=== PATIENT | female | born 1980 | race Caucasian/White ===

== ENCOUNTER 2021-09-29 17:23 | Emergency (ER) | payer MEDICAID, SELFPAY ==
[2021-09-29 17:27] VITALS: BP 108/58; PULSE 76; RESP 18; TEMP 37.2; O2SAT 97
--- NOTE | 2021-09-29 17:52 | ED.GENADUL_ITS ---
Discharge Plan Disposition Patient Disposition: ELOPED Condition: Serious Discharge Details Chief Complaint: Cellulitis Clinical Impression: Ankle swelling, Agitated Primary Care Provider: Unknown,Unknown ED Provider: Harpal Kumar Home Meds and New Rx's Prescriptions: No Action No Known Home Meds Medical Decision Making 41 yo female with hx of substance abuse on methadone who comes in with complaint of skin lesions on her arms and legs for the past month and the last day or so started to have redness of her outter ankles and swelling so came here for an evaluation. She states the lesions appear sporadically and randomly and can't think of anything that make them appear. She has numerous 1-2cm circular skin excoriations that have the appearance of skin popping on her arms and legs but denies any use of illicit drugs or self inflicted skin popping. She has erythema of both lateral malleolus with some swelling, no tunneling lesions of the ankles, has full rom of the ankles and normal sensation. Suspect cellulitis but will obtain cbc, cmp, esr and cmp, xrays and likely try arthrocentesis to evaluate for possible septic joint. I was notified the patient became upset with a nuse when she was offered tylenol. I went to see the patient and tried to determine what had happened, as soon as I did she started screaming and yelling about the way the nurse had treated her and yelling explitives. I asked her calmly to try and calm down and not swear and she would for a few seconds but then would start screaming and yelling explitives again. She then started to yell at me and scream at me that I wasn't taking care of her. I advised I was trying to take care of her and was doing xrays and likely would proceed with arthrocentesis of her ankles due to concern for septic arthritis. She continued to yell at me and I advised I had other patients to see and if that she wanted she could stop yelling at staff and allow us to do xrays and then do an arthrocentesis. She then eloped from the department. She had clinical decision making capacity and was clinically sober to make her own decisions. I was not able to do an against medical advise form with her but had told her if septic arthritis was delayed or not treated it could lead to loss of limb, need for constant care and even and she understood this. Differential Diagnosis Differential Diagnosis: rash, septic joint, cellulitis, skin popping HPI General Mode of arrival: ambulatory . Date/Time Provider Initiated Documentation: 09/29/21 17:23 . Limitations to Documentation: no limitations . Information obtained by: patient . History of Present Illness 41 year old F presents to the emergency department with the chief complaint of lesions on arms and legs, described as moderate, Patient started experiencing this month(s) (1) and it has been constant. No relieving factors improve symptom(s), No exacerbating factors reported . Patient notes denies chest pain and fever/chills. Patient did receive the following treatments prior to arrival, none Related Data Home Medications Medication Instructions Recorded Confirmed Unknown [No Known Home Meds] 09/29/21 09/29/21 Allergies Allergy/AdvReac Type Severity Reaction Status Date / Time bee venom protein (honey bee) Allergy Anaphylaxis Unverified 09/29/21 17:30 NSAIDS (Non-Steroidal Allergy Anaphylaxis Unverified 09/29/21 17:30 Anti-Inflamma General Stated Complaint: Cellulitis MALCOLM: 4 Review of Systems All systems reviewed & are unremarkable except as noted in HPI and below Constitutional Constitutional: Denies chills, Denies fever(s) and Denies weakness Eyes Eyes: Denies loss of vision ENT Ears, Nose, Mouth, and Throat: Denies change in voice Cardiovascular Cardiovascular: Denies chest pain and Denies dyspnea Respiratory Respiratory: Denies cough and Denies dyspnea Gastrointestinal Gastrointestinal: Denies abdominal pain, Denies nausea and Denies vomiting Genitourinary Genitourinary: Denies dysuria Neurologic Neurologic: Denies loss of vision and Denies weakness PFSH All Active Problems (Updated 09/29/21 @ 18:34 by Harpal Kumar MD) Ankle swelling (Acute) Agitated (Acute) Social History Smoking/Tobacco Use Status: Current every day Tobacco Type: cigarettes Smoking risk assessment performed?: Yes Alcohol Intake: never Drug use: Daily Substance use type: marijuana Do you feel safe at home: Yes Do you feel safe in your relationship?: Yes Exam Const General: no acute distress Orientation: alert HENMT Head: normal to inspection Ears: external ears normal General nose exam: external nose normal Mouth: moist mucous membranes Eyes General: appearance normal, both eyes and all related structures Neck Neck: normal visual inspection Resp Effort & Inspection: normal respiratory effort and able to speak in complete sentences Cardio Rate: regular rate Skin General skin exam: erythema Neuro General: patient alert and patient oriented x3 Extrem General: full ROM and capillary refill normal Psych Appearance: disheveled Course Vital Signs Vital signs: Vital Signs Temperature 37.2 C 09/29/21 17:27 Pulse 76 09/29/21 17:27 Respiratory Rate 18 09/29/21 17:27 Blood Pressure 108/58 L 09/29/21 17:27 Pulse Oximetry 97 09/29/21 17:27 Temperature 37.2 C 09/29/21 17:27 Temperature Source Temporal Artery Scan 09/29/21 17:27 Pulse 76 09/29/21 17:27 Respiratory Rate 18 09/29/21 17:27 Respiratory Effort Non-Labored 09/29/21 17:30 Blood Pressure 108/58 L 09/29/21 17:27 Blood Pressure Position Sitting 09/29/21 17:27 Pulse Oximetry 97 09/29/21 17:27 Oxygen Delivery Method Room Air 09/29/21 17:27 Oxygen Flow Rate 0 09/29/21 17:27
[2021-09-29 18:01] LABS: Abs Immature Grans 0.03 10^3/uL (0.0-0.06); Absolute Basophil Count 0.06 10^3/uL (0.0-0.2); Absolute Eosinophil Count 0.23 10^3/uL (0.0-0.7); Absolute Lymphocyte Count 1.77 10^3/uL (1.2-3.4); Absolute Monocyte Count 1.22 10^3/uL (0.1-0.8); Basophils % 0.6; Eosinophils % 2.1; HCT 36.7 % (36.0-46.0); Immature Grans % 0.3; Lymphocytes % 16.4; MCH 28.6 pg (27.0-33.0); MCHC 32.7 % (32.0-36.0); MCV 87 fL (80-95); MPV 10.4 fL (8.0-11.0); Monocytes % 11.3; Neutrophils % 69.3; Platelet Count 304 10^3/uL (130-400); RDW 14.7 % (11.7-14.6); RDW-SD 47.4 fL; WBC 10.81 10^3/uL (4.4-10.8)
[2021-09-29 18:03] LABS: Absolute Neutrophil Count 7.49 10^3/uL (1.2-6.7)
[2021-09-29 18:05] LABS: ESR 61 mm/hr (0-20)
[2021-09-29 18:09] LABS: Bilirubin Small (Negative); Blood Trace-intact (Negative); Clarity Sl Cloudy (Clear); Glucose Negative (Negative); Ketones Negative (Negative); Leukocyte Esterase Negative (Negative); Nitrite Negative (Negative); Specific Gravity >= 1.030 (1.005-1.025); pH 5.5 (5-8)
[2021-09-29 18:16] LABS: Bacteria Few HPF (Negative); Crystals Rare Calcium Oxalate HPF (Negative); Epithelial Cells Moderate HPF (Negative); Mucus Heavy (Negative); RBC 0-2 HPF (0-2); WBC 0-2 HPF (0-5)
[2021-09-29 18:17] LABS: C & S Indicated? No; Casts 0-2 Hyaline LPF (Negative)
[2021-09-29 18:26] LABS: ALT 17 U/L (14-59); AST 16 U/L (15-37); Alkaline Phosphatase 100 U/L (46-116); Anion Gap 4.9 mmol/L (3-11); BUN 14 mg/dL (7-18); Bilirubin, Total 0.3 mg/dL (0.2-1.0); CO2 30.1 mmol/L (21.0-32.0); CREATININE 0.9 mg/dL (0.55-1.02); Calcium 8.9 mg/dL (8.5-10.1); Chloride 105 mmol/L (98-107); Glucose 117 mg/dL (74-106); Potassium 3.5 mmol/L (3.5-5.1); Sodium 140 mmol/L (136-145); Total Protein 7.9 g/dL (6.4-8.2)
[2021-09-29 18:34] LABS: Tricyclic Antidepressants Negative (Negative)
[2021-09-29 18:35] LABS: *AMPHETAMINES SCREEN URINE Negative (Negative); *BARBITURATES SCREEN URINE Negative (Negative); *BENZODIAZEPINES SCREEN URINE Negative (Negative); Cannabinoids THC Positive (Negative); Cocaine Screen,Urine Positive (Negative); METHADONE URINE SCREEN Positive (Negative); OPIATES URINE SCREEN Negative (Negative)
== END 2021-09-29 18:19 ==
PROVIDERS: Emergency Provider Emergency Medicine
DX: R45.1 Restlessness and agitation (principal); L53.9 Erythematous condition, unspecified; L03.90 Cellulitis, unspecified; L98.8 Other specified disorders of the skin and subcutaneous tissue; F17.210 Nicotine dependence, cigarettes, uncomplicated; Z53.29 Procedure and treatment not carried out because of patient's decision for other reasons
CPT/HCPCS: 80053; 80307; 81025; 85652; 99282; 81003; 81015; 85025; 86140

== ENCOUNTER 2022-01-12 11:17 | Emergency (ER) | payer MEDICAID, SELFPAY ==
[2022-01-12 11:27] VITALS: BP 106/68; PULSE 94; RESP 18; TEMP 36.6; O2SAT 97
--- NOTE | 2022-01-12 12:15 | DI.CT_ITS ---
Exam(s) CT HEAD CERVICAL SPINE WO EXAM: CT HEAD CERVICAL SPINE WO CLINICAL HISTORY: fall, HI, neck pain. TECHNIQUE: Imaging Protocol: Axial computed tomography images with coronal and sagittal reformatted images were created and reviewed COMPARISON: No exams were available for comparison FINDINGS: CT Head: Ventricles and Extra axial spaces: Normal in size and morphology for the patient's age. Hemorrhage: None. Cerebral parenchyma: Normal. Midline shift: None. Brainstem/Cerebellum: Normal. Calvarium: Normal. Visualized Paranasal sinuses/Mastoids: Clear. Soft Tissues: Unremarkable. CT Cervical Spine: Bones: No acute fracture or subluxation. There is mild cervical spondylosis. Soft Tissues: Unremarkable. Lung Apices: Clear. IMPRESSION: 1. No acute intracranial process. 2. No acute fracture or subluxation in the cervical spine. 3. Findings were discussed with the emergency department at 1:36 p.m. on 01/12/2022. RADIATION DOSE DELIVERED: 1,220.58mGy.cm Total DLP DATA REPOSITORY: All CT scans at this facility are submitted to the National Radiology Data Registry (NRDR) Dose Index Registry (DIR) with the [employer] (ACR). RADIATION OPTIMIZATION: All CT scans at this facility use at least one of these dose optimization te chniques: automated exposure control; mA and/or kV adjustment per patient size (includes targeted exa ms where dose is matched to clinical indication); or iterative reconstruction.
--- NOTE | 2022-01-12 12:15 | RT.EKG_ITS ---
APPROVED REPORT Exam: Resting ECG Reason for Exam: [facility] Patient Location: E HR:66 bpm ECG Measurements Heart Rate 66 AXIS HI 188 P 48 QRSd 92 QRS 74 QT 393 T 35 QTc 412 Conclusion Sinus rhythm...normal P axis, V-rate 60- 99
[2022-01-12 12:42] LABS: Abs Immature Grans 0.04 10^3/uL (0.0-0.06); Absolute Basophil Count 0.06 10^3/uL (0.0-0.2); Absolute Eosinophil Count 0.15 10^3/uL (0.0-0.7); Absolute Lymphocyte Count 2.42 10^3/uL (1.2-3.4); Absolute Monocyte Count 0.66 10^3/uL (0.1-0.8); Absolute Neutrophil Count 8.31 10^3/uL (1.2-6.7); Basophils % 0.5; Eosinophils % 1.3; HGB 15.5 g/dL (11.2-15.7); Immature Grans % 0.3; Lymphocytes % 20.8; MCH 29.2 pg (27.0-33.0); MCHC 32.3 % (32.0-36.0); MCV 91 fL (80-95); MPV 10.8 fL (8.0-11.0); Monocytes % 5.7; Neutrophils % 71.4; Platelet Count 381 10^3/uL (130-400); RDW 14.7 % (11.7-14.6); RDW-SD 49.3 fL; WBC 11.64 10^3/uL (4.4-10.8)
[2022-01-12 12:46] LABS: Bilirubin Negative (Negative); Blood Negative (Negative); Clarity Clear (Clear); Glucose Negative (Negative); Ketones Negative (Negative); Leukocyte Esterase Negative (Negative); Nitrite Negative (Negative); Specific Gravity 1.025 (1.005-1.025); Urobilinogen 0.2 EU/dL (Up TO 0.2); pH 5.5 (5-8)
[2022-01-12 12:57] LABS: ALT 18 U/L (14-59); AST 12 U/L (15-37); Albumin 3.8 g/dL (3.4-5.0); Alkaline Phosphatase 111 U/L (46-116); Anion Gap 10.3 mmol/L (3-11); BUN 14 mg/dL (7-18); Bilirubin, Total 0.4 mg/dL (0.2-1.0); CO2 26.7 mmol/L (21.0-32.0); Calcium 9.5 mg/dL (8.5-10.1); Chloride 102 mmol/L (98-107); Estimated GFR 71.69 (mL/min/1.73m2); Glucose 124 mg/dL (74-106); Lipase 43 U/L (73-393); Magnesium 1.8 mg/dL (1.8-2.4); Potassium 4.4 mmol/L (3.5-5.1); Sodium 139 mmol/L (136-145); Total Protein 8.7 g/dL (6.4-8.2)
[2022-01-12 13:03] LABS: *AMPHETAMINES SCREEN URINE Negative (Negative); *BARBITURATES SCREEN URINE Negative (Negative); *BENZODIAZEPINES SCREEN URINE Negative (Negative); Cannabinoids THC Positive (Negative); Cocaine Screen,Urine Positive (Negative); METHADONE URINE SCREEN Positive (Negative); OPIATES URINE SCREEN Negative (Negative)
[2022-01-12 13:05] LABS: Tricyclic Antidepressants Negative (Negative)
[2022-01-12 13:07] LABS: Acetaminophen < 2 ug/mL (10-30); ETHANOL BLOOD < 3.0 mg/dL (<10); Troponin I < 50 ng/L (<or=60)
[2022-01-12] MEDS: Omnipaque 350 MG/ML 500 ML BTL-Imaging package IJ (13:17)
--- NOTE | 2022-01-12 13:25 | DI.CT_ITS ---
Exam(s) CT CHEST/ABD/PEL W EXAM: CT CHEST/ABD/PEL W CLINICAL HISTORY: fall, ams, flank ecchymosis TECHNIQUE: Imaging Protocol: Axial computed tomography images with coronal and sagittal reformatted images were created and reviewed CONTRAST MATERIAL: Intravenous: Omnipaque 350 contrast volume:100 mL Oral: No COMPARISON: No exams were available for comparison FINDINGS: CHEST: Tracheobronchial tree: Patent where visualized. Pulmonary parenchyma: No consolidation or dominant measurable mass. There is a triangular nodule asso ciated with the left major fissure measuring 3.7 mm. There is a 3 mm nodule in the right middle lobe . There is a 2 mm nodule in the right middle lobe. Visualized thyroid gland: Unremarkable. Mediastinum and Yareli: No dominant adenopathy or fluid collection. The esophagus is unremarkable. Pleura: No effusion or pneumothorax. Heart: The heart is not dilated. No coronary artery calcifications are seen. No pericardial effusion. Pulmonary arteries: The pulmonary arteries are not adequately opacified for evaluation of pulmonary e mbolic disease. Aorta: Thoracic aorta non-dilated. Lymph nodes: Within normal limits. Soft tissues: Unremarkable. Bones:Within normal limits for the patient's age. ABDOMEN: Liver: Normal density. There are a few tiny round hypodensities in the liver. They are too small for further characterization but likely reflect small cysts. Portal, Superior Mesenteric, and Splenic Veins: Unremarkable. Gallbladder and Biliary Tract: Status post cholecystectomy. No significant biliary ductal dilatation . Pancreas: Normal density, no abnormal calcifications or inflammatory process. Spleen: Normal. Adrenals: There is a 3.1 x 3.8 cm hypodense left adrenal mass. The right adrenal gland is unremarkab le. Kidneys: Normal size, contour and axis. No radiodense stones or obstructive uropathy. No masses seen. Abdominal Aorta: Abdominal portion non-dilated. Atherosclerosis is present. Bowel: No obstruction or bowel wall thickening. Appendix is unremarkable. Peritoneal Cavity: No ascites, collection or mesenteric inflammatory response. No free air. Lymph Nodes: There are mildly enlarged iliac and inguinal lymph nodes. The largest is in the externa l iliac chain which measures 2.1 x 1.2 cm. Bones: Within normal limits for the patient's age. Soft Tissues: Unremarkable. PELVIS: Bladder: Symmetric distention, no gross wall thickening. Reproductive Organs: The left ovary is enlarged measuring 9.3 AP by 6.4 cm transverse. There are mul tiple cysts present. The largest measuring 7.4 x 4.9 cm. Lymph Nodes: Please see above. Bones: Within normal limits. IMPRESSION: 1. No acute thoracic, abdominal or pelvic organ injury or fracture. 2. Pulmonary nodules. In low risk patients no routine follow-up is required. In high risk patients, (history of cancer or other risk factors) optional [address] scan follow-up may be obtained. (Sadie hdz et al., 2017). 3. 3.1 x 3.8 cm left adrenal mass. An MRI without and with contrast is recommended for further evalu ation. 4. Multi cystic left adnexal mass which is likely ovarian. The largest cyst measures 7.4 x 4.9 cm. Pelvic ultrasound should be considered for further evaluation. 5. Please see the above discussion for complete details. 6. Findings were discussed with Kelly Baxter at 1:58 p.m. at 01/12/2022. RADIATION DOSE DELIVERED: 1,330.77mGy.cm Total DLP DATA REPOSITORY: All CT scans at this facility are submitted to the National Radiology Data Registry (NRDR) Dose Index Registry (DIR) with the [employer] (ACR). RADIATION OPTIMIZATION: All CT scans at this facility use at least one of these dose optimization te chniques: automated exposure control; mA and/or kV adjustment per patient size (includes targeted exa ms where dose is matched to clinical indication); or iterative reconstruction.
--- NOTE | 2022-01-12 13:48 | DI.RAD_ITS ---
Exam(s) XR SHOULDER LT COMPLETE 2+V EXAM: XR SHOULDER LT COMPLETE 2+V CLINICAL HISTORY: fall, ecchymosis. TECHNIQUE: 2D digital imaging was performed of the left shoulder. Five images were obtained. AP, G rashey, Y-view and axillary views were obtained. COMPARISON: No exams were available for comparison FINDINGS: BONES: No acute fracture is present. No bony destructive lesion is seen. JOINTS: No dislocation present. SOFT TISSUE: Normal. IMPRESSION: Unremarkable radiographs of the left shoulder. DATA REPOSITORY: RADIATION DOSE DELIVERED:
--- NOTE | 2022-01-12 13:48 | DI.RAD_ITS ---
Exam(s) XR SHOULDER RT COMPLETE 2+V EXAM: XR SHOULDER RT COMPLETE 2+V CLINICAL HISTORY: fall, ecchymosis. TECHNIQUE: 2D digital imaging was performed of the right shoulder. Five images were obtained. AP, Grashey, Y-view and axillary views were obtained. COMPARISON: No exams were available for comparison FINDINGS: BONES: No acute fracture is present. No bony destructive lesion is seen. JOINTS: No dislocation present. There are mild degenerative changes of the AC joint. SOFT TISSUE: Normal. IMPRESSION: Unremarkable radiographs of the right shoulder. DATA REPOSITORY: RADIATION DOSE DELIVERED:
--- NOTE | 2022-01-12 14:02 | W.ED.GENAD ---
Discharge Plan Disposition Patient Disposition: HOME Condition: Stable Discharge Details Clinical Impression: Fall, Contusion of left shoulder, Contusion of right shoulder, Adrenal nodule, Mass, ovarian, Pulmonary nodule Primary Care Provider: Dasha,Local ED Provider: Kelly Baxter Home Meds and New Rx's Prescriptions: Continued acetaminophen 500 mg Tablet 1,000 mg PO PRN PRN Discharge Instructions Instructions: Contusion in Adults (ED), Fall Prevention (ED) Additional Instructions: Use your sling as needed when you are up and about Continue to range her shoulders but not does not become stiff You may take 650 mg of Tylenol every 4-6 hours as needed for pain, do not take any more than the amount of Tylenol as it can harm you You may take ibuprofen 600 mg every 8 hours with food Do not recommend you operate your vehicle until you follow-up with a primary care physician I am referring you for an outpatient Holter monitor, respiratory will call to schedule this Please return earlier should you have new or worsening complaints Discharge Orders Other Ambulatory Orders: Holter Monitor (Routine) Timeframe: 1 Week Facility: [facility] - Location: Respiratory Therapy Ordered By: Kelly Baxter Discharge Data Discharge Date/Time-TO BE ENTERED AT DEPARTURE: 01/12/22 14:12 Medical Decision Making Patient's labs and EKG are essentially unremarkable other her CT scan of her head, cervical spine, chest, abdomen, pelvis She is 3 days out from a reported period of alteration in mental status She will need close outpatient follow-up, she is ordered a Holter monitor in the outpatient setting to evaluate for possible cardiogenic cause of syncope although on telemetry here there was no acute abnormality as she is an alert and oriented throughout this encounter Interestingly patient does tell me she is not taking methadone although she does test positive for that and her pain, I do not feel comfortable prescribing her opiates for home She is made aware regarding her report of her imaging including her shoulders being negative and she states you are not getting help me with pain Unfortunately as patient is currently taking methadone and using her pain, she will is not a candidate for opiates at this time She can take [id number] analgesia as tolerated Return precautions reviewed and patient expressed understanding Discharged home in stable condition with stable vitals with outpatient reassessment with his primary care physician recommended Medical Records Medical records reviewed: Yes I reviewed the patient's medical records. Lab Data Lab results reviewed: Yes I reviewed the patient's lab results. HPI General Date/Time Provider Initiated Documentation: 01/12/22 11:59. HPI Narrative: This 41-year-old female presents 3 days after reported fall on Tuesday. She states her legs gave out and tells me that her said she had a seizure for approximately 8 minutes. Curiously patient does report that she remembers the event. She states that she subsequently fell down a flight of stairs and has right shoulder, neck, and left knee pain. She then tells me she did lose consciousness at the end of the fall. She denies anticoagulation. She was on methadone previously, she states she is not currently using any illicit substances and no longer taking methadone per patient. She denies any chest pain or shortness of breath. She does report some flank pain. She denies any chance of . She denies any nausea or vomiting. She denies similar episodes in the past. Related Data Home Medications Medication Instructions Recorded Confirmed acetaminophen 500 mg tablet 1,000 mg PO PRN PRN 01/12/22 01/12/22 Allergies Allergy/AdvReac Type Severity Reaction Status Date / Time bee venom protein (honey bee) Allergy Anaphylaxis Unverified 01/12/22 11:34 NSAIDS (Non-Steroidal Allergy Anaphylaxis Unverified 01/12/22 11:34 Anti-Inflamma pineapple Allergy Anaphylaxis Unverified 01/12/22 11:34 General Stated Complaint: Trauma MALCOLM: 3 Review of Systems All systems reviewed & are unremarkable except as noted in HPI and below PFSH All Active Problems (Updated 01/12/22 @ 14:07 by DUYEN Salcido) Fall (Acute) Contusion of left shoulder (Acute) Contusion of right shoulder (Acute) Adrenal nodule (Acute) Mass, ovarian (Acute) Pulmonary nodule (Acute) Syncope and collapse (Acute) Social History Smoking/Tobacco Use Status: Current every day Tobacco Type: cigarettes Smoking risk assessment performed?: Yes Alcohol Intake: never Drug use: Daily Substance use type: marijuana Do you feel safe at home: Yes Do you feel safe in your relationship?: Yes Exam Const General: cooperative, comfortable and no acute distress Orientation: alert and oriented x3 [facility] Head images: 1. Ecchymosis, no hemotympanum, no proptosis Other: Uvula midline, no intraoral excoriations or lesions Eyes Pupils: PERRL Neck Other: Midline tenderness without evidence of trauma, Chest Other: Ecchymosis right posterior thorax Resp Effort & Inspection: normal respiratory effort Auscultation: clear to auscultation bilaterally Cardio Rate: regular rate Rhythm: regular rhythm Other: Distal pulses intact GI Other: Ecchymosis left flank with tenderness, ecchymosis left upper quadrant Back/Spine/Pelvis Back: CVA tenderness Neuro General: patient alert and patient oriented x3 Cranial Nerves: tongue midline Cognition: normal cognition Speech: speech normal Gait: normal gait Extrem Other: Ecchymosis to bilateral shoulders mild left knee pain with flexion extension preserved, neurovascularly intact Course Vital Signs Vital signs: Vital Signs Temperature 36.6 C 01/12/22 11:27 Pulse 94 H 01/12/22 11:27 Respiratory Rate 18 01/12/22 11:27 Blood Pressure 106/68 01/12/22 11:27 Pulse Oximetry 97 01/12/22 11:27 Temperature 36.6 C 01/12/22 11:27 Temperature Source Tympanic 01/12/22 11:27 Pulse 94 H 01/12/22 11:27 Respiratory Rate 18 01/12/22 11:27 Respiratory Effort Non-Labored 01/12/22 12:29 Respiratory Depth Normal 01/12/22 12:29 Respiratory Pattern Normal 01/12/22 12:29 Blood Pressure 106/68 01/12/22 11:27 Blood Pressure Position Sitting 01/12/22 11:27 Pulse Oximetry 97 01/12/22 11:27 Oxygen Delivery Method Room Air 01/12/22 11:27 Oxygen Flow Rate 0 01/12/22 11:27 Pain Level 9 01/12/22 12:29 Lab/Test Results Lab/Test Results: Laboratory Tests Range/Units 01/12/22 01/12/22 01/12/22 12:20 12:20 12:20 WBC (4.4-10.8) 10^3/uL 11.64 H RBC (3.93-5.22) 10^6/uL 5.30 H Hgb (11.2-15.7) g/dL 15.5 Hct (36.0-46.0) % 48.0 H MCV (80-95) fL 91 MCH (27.0-33.0) pg 29.2 MCHC (32.0-36.0) % 32.3 RDW (11.7-14.6) % 14.7 H Plt Count (130-400) 10^3/uL 381 MPV (8.0-11.0) fL 10.8 Immature Gran % 0.3 Neutrophils % 71.4 Lymphocytes % 20.8 Monocytes % 5.7 Eosinophils % 1.3 Basophils % 0.5 Nucleated RBC % (0.0-0.3) % 0.0 Absolute Neutrophils (1.2-6.7) 10^3/uL 8.31 H Absolute Lymphocytes (1.2-3.4) 10^3/uL 2.42 Absolute Monocytes (0.1-0.8) 10^3/uL 0.66 Absolute Eosinophils (0.0-0.7) 10^3/uL 0.15 Absolute Basophils (0.0-0.2) 10^3/uL 0.06 Sodium (136-145) mmol/L 139 Potassium (3.5-5.1) mmol/L 4.4 Chloride (98-107) mmol/L 102 Carbon Dioxide (21.0-32.0) mmol/L 26.7 Anion Gap (3-11) mmol/L 10.3 BUN (7-18) mg/dL 14 Creatinine (0.55-1.02) mg/dL 1.0 Est GFR (CKD-EPI 2020) (mL/min/1.73m2) 71.69 Glucose (74-106) mg/dL 124 H Calcium (8.5-10.1) mg/dL 9.5 Magnesium (1.8-2.4) mg/dL 1.8 Total Bilirubin (0.2-1.0) mg/dL 0.4 AST (15-37) U/L 12 L ALT (14-59) U/L 18 Alkaline Phosphatase (46-116) U/L 111 Troponin I (<or=60) ng/L < 50 Total Protein (6.4-8.2) g/dL 8.7 H Albumin (3.4-5.0) g/dL 3.8 Lipase (73-393) U/L 43 Urine Color (Yellow) Urine Clarity (Clear) Urine pH (5-8) Ur Specific Halsey (1.005-1.025) Urine Protein (Negative) mg/dL Urine Ketones (Negative) mg/dL Urine Blood (Negative) Urine Nitrite (Negative) Urine Bilirubin (Negative) Urine Urobilinogen (Up TO 0.2) EU/dL Ur Leukocyte Esterase (Negative) Urine Glucose (Negative) mg/dL Urine Opiates Screen (Negative) Urine Methadone Screen (Negative) Acetaminophen (10-30) ug/mL < 2 Ur Barbiturates Screen (Negative) Ur Tricyclics Screen (Negative) Ur Amphetamines Screen (Negative) U Benzodiazepines Scrn (Negative) Urine Cocaine Screen (Negative) Ur THC Screen (Negative) Ethyl Alcohol (<10) mg/dL < 3.0 Range/Units 01/12/22 01/12/22 12:30 12:30 WBC (4.4-10.8) 10^3/uL RBC (3.93-5.22) 10^6/uL Hgb (11.2-15.7) g/dL Hct (36.0-46.0) % MCV (80-95) fL MCH (27.0-33.0) pg MCHC (32.0-36.0) % RDW (11.7-14.6) % Plt Count (130-400) 10^3/uL MPV (8.0-11.0) fL Immature Gran % Neutrophils % Lymphocytes % Monocytes % Eosinophils % Basophils % Nucleated RBC % (0.0-0.3) % Absolute Neutrophils (1.2-6.7) 10^3/uL Absolute Lymphocytes (1.2-3.4) 10^3/uL Absolute Monocytes (0.1-0.8) 10^3/uL Absolute Eosinophils (0.0-0.7) 10^3/uL Absolute Basophils (0.0-0.2) 10^3/uL Sodium (136-145) mmol/L Potassium (3.5-5.1) mmol/L Chloride (98-107) mmol/L Carbon Dioxide (21.0-32.0) mmol/L Anion Gap (3-11) mmol/L BUN (7-18) mg/dL Creatinine (0.55-1.02) mg/dL Est GFR (CKD-EPI 2020) (mL/min/1.73m2) Glucose (74-106) mg/dL Calcium (8.5-10.1) mg/dL Magnesium (1.8-2.4) mg/dL Total Bilirubin (0.2-1.0) mg/dL AST (15-37) U/L ALT (14-59) U/L Alkaline Phosphatase (46-116) U/L Troponin I (<or=60) ng/L Total Protein (6.4-8.2) g/dL Albumin (3.4-5.0) g/dL Lipase (73-393) U/L Urine Color (Yellow) Yellow Urine Clarity (Clear) Clear Urine pH (5-8) 5.5 Ur Specific Halsey (1.005-1.025) 1.025 Urine Protein (Negative) mg/dL Negative Urine Ketones (Negative) mg/dL Negative Urine Blood (Negative) Negative Urine Nitrite (Negative) Negative Urine Bilirubin (Negative) Negative Urine Urobilinogen (Up TO 0.2) EU/dL 0.2 Ur Leukocyte Esterase (Negative) Negative Urine Glucose (Negative) mg/dL Negative Urine Opiates Screen (Negative) Negative Urine Methadone Screen (Negative) Positive A Acetaminophen (10-30) ug/mL Ur Barbiturates Screen (Negative) Negative Ur Tricyclics Screen (Negative) Negative Ur Amphetamines Screen (Negative) Negative U Benzodiazepines Scrn (Negative) Negative Urine Cocaine Screen (Negative) Positive A Ur THC Screen (Negative) Positive A Ethyl Alcohol (<10) mg/dL
[2022-01-12 14:11] VITALS: BP 106/68; PULSE 74; RESP 18; TEMP 36.6; O2SAT 97
--- NOTE | 2022-01-12 14:18 | NUR.NOTE ---
Nursing Note:referral to cm for pcp
--- NOTE | 2022-01-17 08:47 | PDOC.ERCMACT ---
- If Service Date Differs Date of service: 01/17/22 Time of Service: 08:47 Care Management Activity Note Nancy is seen in the ED for a fall, contusion to both shoulders, adrenal nodule, etc. At the request of ED provider, SOTERO coordinates a referral to Seb Delarosa MD, of [facility], on-call provider, to assist Nancy in obtaining a follow up appointment and in establishing care with a local PCP. She has Medicaid for insurance.
== END 2022-01-12 14:12 | disposition home or self-care (01) ==
PROVIDERS: Emergency Provider Physician Assistant
DX: S40.012A Contusion of left shoulder, initial encounter (principal); S40.011A Contusion of right shoulder, initial encounter; S00.83XA Contusion of other part of head, initial encounter; S20.211A Contusion of right front wall of thorax, initial encounter; S30.1XXA Contusion of abdominal wall, initial encounter; R91.1 Solitary pulmonary nodule; G89.11 Acute pain due to trauma; M25.562 Pain in left knee; E27.8 Other specified disorders of adrenal gland; N83.8 Other noninflammatory disorders of ovary, fallopian tube and broad ligament; W10.9XXA Fall (on) (from) unspecified stairs and steps, initial encounter
CPT/HCPCS: 36415; 74177; 80053; 80307; 83690; 93005; 99285; 70450; 71260; 72125; 73030; 80320; 80329; 81003; 83735; 84484; 85025; 93010

== ENCOUNTER 2024-05-31 14:50 | Emergency (ER) | payer MEDICAID, SELFPAY ==
[2024-05-31 14:53] VITALS: BP 127/81; PULSE 77; RESP 16; TEMP 36.6; O2SAT 95
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
[2024-05-31] MEDS: Acetaminophen 500 MG TAB 1000 MG PO (17:20)
[2024-05-31] MEDS: Sulfameth/Trimeth DS TAB 1 TAB PO (17:21)
[2024-05-31 18:24] VITALS: BP 137/74; PULSE 77; RESP 16; TEMP 36.8; O2SAT 96
[2024-05-31] MEDS: Mupirocin 2% Oint. 22 GM TUBE TP (18:24)
== END 2024-05-31 18:29 | disposition home or self-care (01) ==
PROVIDERS: Emergency Provider Physician Assistant
DX: F07.81 Postconcussional syndrome (principal); L03.114 Cellulitis of left upper limb; L03.113 Cellulitis of right upper limb; F17.210 Nicotine dependence, cigarettes, uncomplicated; R51.9 Headache, unspecified
CPT/HCPCS: 99284; 70450

== ENCOUNTER 2025-01-10 08:29 | Outpatient (CLI) | payer MEDICAID, SELFPAY ==
--- NOTE | 2025-01-10 08:45 | RT.EKG_ITS ---
APPROVED REPORT Exam: Resting ECG Reason for Exam: High Risk Medication Use Patient Location: O HR:63 bpm ECG Measurements Heart Rate 63 AXIS SD 203 P 56 QRSd 95 QRS 73 QT 440 T 35 QTc 451 Conclusion Sinus rhythm...normal P axis, V-rate 50- 99 Borderline prolonged SD interval...SD >202, V-rate 50- 90 Otherwise normal ECG
== END 2025-01-10 08:30 | disposition home or self-care (01) ==
PROVIDERS: Visit Provider Family Medicine
DX: Z79.899 Other long term (current) drug therapy (principal)
CPT/HCPCS: 93005; 93010

== ENCOUNTER → 2025-03-04 10:13 | Outpatient (CLI) | payer MEDICAID, SELFPAY ==
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
== END ==
LOC: DI 10:13
PROVIDERS: Visit Provider Nurse Practitioner Family
DX: M17.11 Unilateral primary osteoarthritis, right knee (principal)
CPT/HCPCS: 73030